=== PATIENT | female | born 1995 | race American Indian/Alaskan Native ===

== ENCOUNTER 2021-09-13 22:59 | Emergency (ER) | payer MEDICAID ==
[2021-09-13] MEDS ORDERED: SODIUM CHLORIDE 0.9% 1000 ML 1,000 ML IV ONE (23:31)
[2021-09-13] MEDS ORDERED: MECLIZINE 25 MG TAB PO ONE (23:33)
--- NOTE | 2021-09-13 23:39 | Emergency Department Report ---
ED Dizziness HPI - General Chief Complaint: Dizziness Stated Complaint: dizziness Time Seen by Provider: 09/13/21 23:24 Source: patient Mode of arrival: Ambulatory Limitations: No Limitations - History of Present Illness Initial Comments: 26-year-old female presents to ED with complaint of dizziness x3 days. Patient reports she drank an entire bottle of liquor 3 days ago. Patient states she does not usually drink that liquor and she does not usually drink that much either. Patient states she drank heavily because she lost her twin brother this year and also lost her grandmother 1 week after Thanksgiving last year. Patient states the day after drinking she just felt hung over, however patient states that feeling has not resolved. She reports nausea, no vomiting, and dizziness. Patient states he feels like the room is spinning. MD Complaint: dizziness -: days(s) (3) Timing: awoke with symptoms Description: "room spinning", nausea History of Same: No History of Trauma: No Severity: mild Improves With: remaining still Worsens With: movement Associated Symptoms: denies: chest pain, fever/chills, shortness of breath - Related Data Home Medications Medication Instructions Recorded Confirmed Last Taken Sertraline [Zoloft] 2 02/16/14 04/09/14 Unknown Topiramate [Topamax TAB] 1 02/16/14 04/09/14 Unknown Previous Rx's Medication Instructions Recorded Last Taken Type Ondansetron [Zofran Odt] 4 mg PO Q4H #10 tab.rapdis 12/13/13 Unknown Rx Famotidine [Pepcid] 10 mg PO BID #30 tablet 01/12/14 Unknown Rx Prednisone [Prednisone 5 mg (6-Day 5 mg PO .TAPER #1 tab.ds.pk 01/12/14 Unknown Rx Pack, 21 Tabs)] Cephalexin [Keflex] 500 mg PO QID #28 capsule 02/16/14 Unknown Rx Albuterol Sulfate [Ventolin HFA] 2 puff IH Q4H PRN #1 hfa.aer.ad 04/09/14 Unknown Rx predniSONE [Deltasone] 20 mg PO BID #10 tab 04/09/14 Unknown Rx Albuterol Sulfate [Proventil HFA] 1 - 2 puff IH Q4H PRN #1 hfa.aer.ad 04/29/14 Unknown Rx Amoxicillin/K Clav (Nf) [Augmentin 1 tab PO Q8H #20 tablet 04/29/14 Unknown Rx 500MG] Fluticasone Propionate [Flonase] 2 sprays NS QDAY #1 spray 04/29/14 Unknown Rx Loratadine (Nf) [Claritin] 10 mg PO DAILY #30 tablet 04/29/14 Unknown Rx predniSONE [Deltasone] 20 mg PO QDAY #5 tab 04/29/14 Unknown Rx Ibuprofen [Motrin] 600 mg PO Q8H PRN #24 tablet 05/20/20 Unknown Rx Ondansetron [Zofran Odt] 4 mg PO Q6HR PRN #15 tab.rapdis 05/20/20 Unknown Rx cephALEXin [Keflex] 500 mg PO Q8HR #30 cap 05/20/20 Unknown Rx Meclizine [Antivert] 25 mg PO TID PRN #20 tablet 09/14/21 Unknown Rx Allergies Allergy/AdvReac Type Severity Reaction Status Date / Time hydrocodone Allergy Itching Verified 05/19/20 21:05 sulfamethoxazole Allergy Hives Verified 12/13/13 18:09 [From Bactrim] trimethoprim [From Bactrim] Allergy Hives Verified 12/13/13 18:09 ED Review of Systems ROS: Stated complaint: dizziness Other details as noted in HPI Comment: All other systems reviewed and negative Constitutional: denies: fever Respiratory: denies: shortness of breath Cardiovascular: denies: chest pain Gastrointestinal: nausea. denies: vomiting Neurological: vertigo. denies: headache ED Past Medical Hx - Past Medical History Hx Psychiatric Treatment: Yes Hx Asthma: Yes Additional medical history: anemia - Social History Smoking Status: Never Smoker Substance Use Type: None - Medications Home Medications: Home Medications Medication Instructions Recorded Confirmed Last Taken Type Ondansetron [Zofran Odt] 4 mg PO Q4H #10 tab.rapdis 12/13/13 04/09/14 Unknown Rx Famotidine [Pepcid] 10 mg PO BID #30 tablet 01/12/14 04/09/14 Unknown Rx Prednisone [Prednisone 5 mg (6-Day 5 mg PO .TAPER #1 tab.ds.pk 01/12/14 04/09/14 Unknown Rx Pack, 21 Tabs)] Cephalexin [Keflex] 500 mg PO QID #28 capsule 02/16/14 04/09/14 Unknown Rx Sertraline [Zoloft] 2 02/16/14 04/09/14 Unknown History Topiramate [Topamax TAB] 1 02/16/14 04/09/14 Unknown History Albuterol Sulfate [Ventolin HFA] 2 puff IH Q4H PRN #1 hfa.aer.ad 04/09/14 Unknown Rx predniSONE [Deltasone] 20 mg PO BID #10 tab 04/09/14 Unknown Rx Albuterol Sulfate [Proventil HFA] 1 - 2 puff IH Q4H PRN #1 hfa.aer.ad 04/29/14 Unknown Rx Amoxicillin/K Clav (Nf) [Augmentin 1 tab PO Q8H #20 tablet 04/29/14 Unknown Rx 500MG] Fluticasone Propionate [Flonase] 2 sprays NS QDAY #1 spray 04/29/14 Unknown Rx Loratadine (Nf) [Claritin] 10 mg PO DAILY #30 tablet 04/29/14 Unknown Rx predniSONE [Deltasone] 20 mg PO QDAY #5 tab 04/29/14 Unknown Rx Ibuprofen [Motrin] 600 mg PO Q8H PRN #24 tablet 05/20/20 Unknown Rx Ondansetron [Zofran Odt] 4 mg PO Q6HR PRN #15 tab.rapdis 05/20/20 Unknown Rx cephALEXin [Keflex] 500 mg PO Q8HR #30 cap 05/20/20 Unknown Rx Meclizine [Antivert] 25 mg PO TID PRN #20 tablet 09/14/21 Unknown Rx ED Physical Exam - General Limitations: No Limitations General appearance: alert, in no apparent distress - Head Head exam: Present: atraumatic, normocephalic - Eye Eye exam: Present: normal appearance, EOMI - ENT ENT exam: Present: mucous membranes moist - Neck Neck exam: Present: normal inspection - Respiratory Respiratory exam: Present: normal lung sounds bilaterally. Absent: respiratory distress - Cardiovascular Cardiovascular Exam: Present: regular rate, normal rhythm - GI/Abdominal GI/Abdominal exam: Present: soft. Absent: distended, tenderness - Extremities Exam Extremities exam: Present: normal inspection - Neurological Exam Neurological exam: Present: alert, oriented X3, CN II-XII intact, normal gait. Absent: motor sensory deficit - Psychiatric Psychiatric exam: Present: normal affect, normal mood - Skin Skin exam: Present: warm, dry, intact, normal color ED Course Vital Signs 09/13/21 23:14 Temperature 98.5 F Pulse Rate 85 Respiratory 18 Rate Blood Pressure 135/81 [Right] O2 Sat by Pulse 99 Oximetry ED Medical Decision Making - Lab Data Result diagrams: 09/13/21 23:47 09/13/21 23:47 - Medical Decision Making 26-year-old female reports drinking excessively 3 days ago. Patient reports fee ling hung over and dizzy since. Patient describes vertigo-like symptoms. IV fluids and meclizine given. Labs are unremarkable. Patient feeling much better following medication administration. She will be discharged at this time. Outpatient follow-up advised, return precautions given. - Differential Diagnosis Vertigo, dehydration, electrolyte abnormality Critical care attestation.: If time is entered above; I have spent that time in minutes in the direct care of this critically ill patient, excluding procedure time. ED Disposition Clinical Impression: Vertigo Disposition: 01 HOME / SELF CARE / HOMELESS Is pt being admited?: No Condition: Stable Instructions: Benign Positional Vertigo, Dizziness, Aake-uv-Aepp Prescriptions: Meclizine [Antivert] 25 mg PO TID PRN #20 tablet PRN Reason: Vertigo Referrals: PRIMARY CARE, [Primary Care Provider] - 3-5 Days [facility] [Provider Group] - 3-5 Days Time of Disposition: 01:54
[2021-09-14 00:12] LABS: Basophils % (Auto) 0.4 % (0.0-1.8); Hematocrit 39.9 % (30.3-42.9); Hemoglobin 12.6 gm/dl (10.1-14.3); Lymphocytes # (Auto) 1.4 K/mm3 (1.2-5.4); Lymphocytes % (Auto) 29.2 % (13.4-35.0); Mean Corpuscular HGB Conc 32 % (30-34); Mean Corpuscular Volume 89 fl (79-97); Monocytes # (Auto) 0.5 K/mm3 (0.0-0.8); Monocytes % (Auto) 11.3 % (0.0-7.3); Platelet Count 322 K/mm3 (140-440); Red Blood Count 4.51 M/mm3 (3.65-5.03); Red Cell Distribution Width 13.8 % (13.2-15.2)
[2021-09-14 00:50] LABS: Alanine Aminotransferase 22 units/L (7-56); Albumin 4.3 g/dL (3.9-5); Blood Urea Nitrogen 10 mg/dL (7-17); Calcium 9.4 mg/dL (8.4-10.2); Hemolysis Index 7
[2021-09-14 00:51] LABS: BUN/Creatinine Ratio 14; Bilirubin,Direct < 0.2 mg/dL (0-0.2)
[2021-09-14 04:15] VITALS: BP 136/81
== END 2021-09-14 02:40 | disposition home or self-care (01) ==
LOC: ED 22:59
DX: R42 Dizziness and giddiness (principal); J45.909 Unspecified asthma, uncomplicated; Z88.5 Allergy status to narcotic agent; Z88.2 Allergy status to sulfonamides
CPT/HCPCS: 36415; 80048; 80076; 84703; 85025; 96360; 99283; J7030; Q0162